=== PATIENT | female | born 1980 | race Hispanic/Latino ===

== ENCOUNTER 2017-08-19 17:42 | Emergency (ER) | payer BC ==
[2017-08-19 17:46] VITALS: BP 110/80; PULSE 105; RESP 20; TEMP 99.1; O2SAT 100
[2017-08-19] MEDS ORDERED: Sodium Chloride 0.9% 1,000 ML IV STA ×2 (18:15→19:38)
--- NOTE | 2017-08-19 18:17 | ED PDOC ---
HPI: Abdomen Time Seen by Provider: 08/19/17 17:59 Chief Complaint (Nursing): GI Problem Chief Complaint (Provider): Abominal pain History Per: Patient, Family Additional Complaint(s): 37 yo female, PMH of Hypothyroid, Pt c/o nausea and vomiting since last night after eating salad yesterday. No meet or eggs in salad. no fever or chills. no Diarrhea. Pt unable to tolerate PO. >10 episodes of non bloody, non billious vomiting. Past Medical History Reviewed: Nursing Documentation, Vital Signs Vital Signs: Last Vital Signs Temp 99.1 F 08/19/17 17:43 Pulse 105 H 08/19/17 17:43 Resp 20 08/19/17 17:43 BP 110/80 08/19/17 17:43 Pulse Ox 100 08/19/17 18:17 - Medical History PMH: Hypothyroidism - Surgical History Surgical History: No Surg Hx - Family History Family History: States: No Known Family Hx - Living Arrangements Living Arrangements: With Family - Social History Current smoker - smoking cessation education provided: No Alcohol: None Drugs: Denies - Allergies Allergies/Adverse Reactions: Allergies Allergy/AdvReac Type Severity Reaction Status Date / Time codeine Allergy VOMITING Verified 08/19/17 17:43 Review of Systems ROS Statement: Except As Marked, All Systems Reviewed And Found Negative Gastrointestinal: Positive for: Nausea, Vomiting, Abdominal Pain Physical Exam - Reviewed Nursing Documentation Reviewed: Yes Vital Signs Reviewed: Yes - Physical Exam Appears: Positive for: Non-toxic, No Acute Distress, Uncomfortable Head Exam: Positive for: ATRAUMATIC, NORMAL INSPECTION, NORMOCEPHALIC Skin: Positive for: Normal Color, Warm, DRY Eye Exam: Positive for: EOMI, Normal appearance, PERRL ENT: Positive for: Normal ENT Inspection Neck: Positive for: Normal, Painless ROM Cardiovascular/Chest: Positive for: Regular Rate, Rhythm Respiratory: Positive for: CNT, Normal Breath Sounds Gastrointestinal/Abdominal: Positive for: Bowel Sounds, Soft. Negative for: Tenderness, Distended, Guarding Back: Positive for: Normal Inspection Extremity: Positive for: Normal ROM Neurologic/Psych: Positive for: Alert, Oriented - ECG O2 Sat by Pulse Oximetry: 100 Medical Decision Making Medical Decision Making: IV access established and treatment initiated with IVF and Zofran. On re-eval, pt reports nausea resolved, headache now present. Toradol administered. Labs pending at 1950 Case endorsed to GALDINO Lujan pending diagnostic review and re-eval. IVF running Disposition - Clinical Impression Clinical Impression: Vomiting - Patient ED Disposition Is Patient to be Admitted: Transfer of Care - Disposition Disposition: Transfer of Care Disposition Time: 19:58 Condition: STABLE Forms: [facility] (Welsh)
[2017-08-19 19:56] LABS: BASO % 0.2 % (0.0-2.0); HEMOGLOBIN 13.7 g/dL (12.0-16.0); LYMPH # 0.2 K/uL (1.0-4.3); MEAN CELL VOLUME 94.3 fl (81.0-99.0); MEAN CORPUSCULAR HEMOGLOBIN 30.9 pg (27.0-31.0); MEAN CORPUSCULAR HGB CONC 32.8 g/dL (33.0-37.0); MEAN PLATELET VOLUME 8.6 fl (7.2-11.7); MONO # 0.5 K/uL (0.0-0.8); MONO % 7.7 % (0.0-10.0); NEUT # 5.2 K/uL (1.8-7.0); NEUT % 88.1 % (50.0-75.0); NRBC % 0.1 % (0.0-0.0); PLATELET COUNT 208 K/uL (130-400); RBC 4.44 Mil/uL (3.80-5.20); RED CELL DISTRIBUTION WIDTH 12.3 % (11.5-14.5); WHITE BLOOD COUNT 5.9 K/uL (4.8-10.8)
[2017-08-19 20:08] LABS: ALB/GLOB RATIO 1.3 (1.0-2.1); ALBUMIN 4.3 g/dL (3.5-5.0); ALT/SGPT 31 U/L (9-52); AMYLASE 55 U/L (30-110); AST/SGOT 43 U/L (14-36); BLOOD UREA NITROGEN 20 mg/dl (7-17); CALCIUM 9.1 mg/dL (8.4-10.2); GFR AFRICAN-AMERICAN > 60; GFR NON-AFRICAN AMERICAN > 60; LIPASE 22 U/L (23-300)
[2017-08-19 20:09] LABS: SQUAMOUS EPITHIAL 4 /hpf (0-5); URINE BACTERIA OCC (<OCC); URINE BILIRUBIN NEGATIVE (NEGATIVE); URINE BLOOD NEGATIVE (NEGATIVE); URINE CLARITY CLOUDY (Clear); URINE COLOR YELLOW (YELLOW); URINE GLUCOSE (UA) NEG (Normal); URINE LEUKOCYTE ESTERASE NEG Leu/uL (Negative); URINE NITRATE NEGATIVE (NEGATIVE); URINE PROTEIN 30 mg/dL (NEGATIVE)
[2017-08-19 21:05] LABS: LYMPHOCYTE 3 % (20-50); MONOCYTE 8 % (0-10); NEUTROPHIL 89 % (42-75); PLATELET ESTIMATE NORMAL (NORMAL); TOTAL CELLS COUNTED 100
--- NOTE | 2017-08-19 21:39 | ED PDOC ---
- Laboratory Results Result Diagrams: 08/19/17 18:30 08/19/17 18:30 - ECG O2 Sat by Pulse Oximetry: 100 - Progress ED Course And Treament: pt pending re-eval and labs for possible food pensioning Laboratory Results - last 72 hr 08/19/17 08/19/17 08/19/17 18:30 18:30 18:30 WBC 5.9 RBC 4.44 Hgb 13.7 Hct 41.9 MCV 94.3 MCH 30.9 MCHC 32.8 L RDW 12.3 Plt Count 208 MPV 8.6 Neut % (Auto) 88.1 H Lymph % (Auto) 4.0 L [place] % (Auto) 7.7 Eos % (Auto) 0.0 Baso % (Auto) 0.2 Neut # 5.2 Lymph # 0.2 L [place] # 0.5 Eos # 0.0 Baso # 0.0 Neutrophils % (Manual) 89 H Lymphocytes % (Manual) 3 L Monocytes % (Manual) 8 Platelet Estimate Normal Sodium 141 Potassium 3.9 Chloride 101 Carbon Dioxide 27 Anion Gap 17 BUN 20 H Creatinine 0.8 Est GFR ( Amer) > 60 Est GFR (Non-Af Amer) > 60 Random Glucose 117 H Calcium 9.1 Total Bilirubin 0.7 AST 43 H ALT 31 Alkaline Phosphatase 55 Total Protein 7.5 Albumin 4.3 Globulin 3.2 Albumin/Globulin Ratio 1.3 Amylase 55 Lipase 22 L Urine Color Yellow Urine Clarity Cloudy Urine pH 5.0 Ur Specific [place] 1.030 Urine Protein 30 Urine Glucose (UA) Neg Urine Ketones 80 Urine Blood Negative Urine Nitrate Negative Urine Bilirubin Negative Urine Urobilinogen 2.0 H Ur Leukocyte Esterase Neg Urine RBC (Auto) 18 H Urine Microscopic WBC 2 Ur Squamous Epith Cells 4 Urine Bacteria Occ H . Medical Decision Making Medical Decision Making: ptimproved. will [facility] pmd d.c with zofran, pepcid and bnelty with rest and plenty of fluids. Vital Signs - 24 hr 08/19/17 08/19/17 17:43 19:58 Temperature 99.1 F Pulse Rate 105 H Respiratory 20 Rate Blood Pressure 110/80 O2 Sat by Pulse 100 100 Oximetry Disposition - Clinical Impression Clinical Impression: Vomiting, Abdominal cramps - POA Present On Arrival: None - Disposition Disposition: Routine/Home Disposition Time: 21:39 Condition: STABLE Prescriptions: Dicyclomine [Bentyl] 20 mg PO TID #30 tab Famotidine [Pepcid] 20 mg PO BID #16 tab Ondansetron [Zofran] 4 mg PO Q8H #12 tab Instructions: Gastroenteritis (ED), Food Poisoning (ED) Forms: [facility] ED School/Work Excuse Progress Note - Review of Symptoms General: No: Chills, Night Sweats, Fatigue, Malaise, Appetite, Other HEENT: No: Head Aches, Visual Changes, Eye Pain, Ear Pain, Dysphasia, Sinus Congestion, Post Nasal Drip, Sore Throat, Other Pulmonary: No: Dyspnea, Cough, Pleuritic Chest Pain, Other Cardiovascular: No: Chest Pain, Palpitations, Orthopnea, Paroxysmal Noc. Dyspnea , Edema, Light Headedness, Other Gastrointestinal: No: Nausea, Vomiting, Abdominal Pain, Diarrhea, Constipation, Melena, Hematochezia, Other Genitourinary: No: Dysuria, Frequency, Incontinence, Hematuria, Retention, Other Musculoskeletal: No: Muscle Pain, Joint Pain, Other Neurological: No: Weakness, Numbness, Incoordination, Change in speech, Confusion, Seizures, Other
== END 2017-08-19 21:51 | disposition home or self-care (01) ==
LOC: H.ER 17:42
DX: E03.9 Hypothyroidism, unspecified (principal)
CPT/HCPCS: 80053; 81003; 82150; 83690; 85025; 87040; 87086; 96374; 96375; 99282; J1885; J2405; J7040